=== PATIENT | female | born 2000 ===

== ENCOUNTER 2024-07-26 01:56 | Emergency (ER) | payer OTHER ==
[~2024-07-26] VITALS: Ht 167.6 cm; Wt 45.2 kg
[2024-07-26 02:12] VITALS: BP 132/89; PULSE 105; RESP 15; TEMP 98.6; O2SAT 100
== END 2024-07-26 04:46 | disposition left against medical advice (07) ==
LOC: ER 01:57
DX: R50.9 Fever, unspecified (principal); Z53.21 Procedure and treatment not carried out due to patient leaving prior to being seen by health care provider